=== PATIENT | male | born 1955 | race African-American/Black ===

== ENCOUNTER 2021-07-14 10:48 | Emergency (ER) | payer OTHER ==
[~2021-07-14] VITALS: Ht 182.9 cm; Wt 90.0 kg
[2021-07-14 12:32] VITALS: BP 138/69
== END 2021-07-14 12:30 | disposition home or self-care (01) | DRG 605 ==
LOC: ED 10:48
DX: S80.11XA Contusion of right lower leg, initial encounter (principal); I10 Essential (primary) hypertension; E11.9 Type 2 diabetes mellitus without complications; V43.62XA Car passenger injured in collision with other type car in traffic accident, initial encounter